=== PATIENT | female | born 1990 | race African-American/Black ===

== ENCOUNTER 2017-04-05 11:42 | Emergency (ER) | payer OTHER ==
[~2017-04-05] VITALS: Ht 170.2 cm; Wt 54.4 kg
[~2017-04-05 11:42] MED LIST: FLAGYL 250 MG250 MG PO; IBUPROFEN 600600 M1 PO; KEFLEX500 MG PO; LANSINOH 60 GM60 GM TOP; NOHOMEMEDICATIONS; NORCO 5-325 TA1 EACH PO; PHENERGAN 25 MG25 M1 PO; PHENERGAN25 M2 RC; PRENATAL PO; ZOFRAN 4 MG ORAL4 M1 DIS
[2017-04-05] MEDS ORDERED: NAPROSYN500 MG PO (14:20)
[2017-04-05] MEDS ORDERED: HYDROCODONE-AP1 EAC6 PO (14:20)
[2017-04-05] MEDS ORDERED: PHENERGAN 25 MG25 M1 PO (14:20)
[2017-04-05] MEDS ORDERED: NORFLEX100 MG PO (14:20)
== END 2017-04-05 14:56 | disposition home or self-care (01) ==
LOC: ER 11:42
DX: S16.1XXA Strain of muscle, fascia and tendon at neck level, initial encounter (principal); S80.00XA Contusion of unspecified knee, initial encounter; S29.012A Strain of muscle and tendon of back wall of thorax, initial encounter; V48.0XXA Car driver injured in noncollision transport accident in nontraffic accident, initial encounter; Y93.89 Activity, other specified; Y92.89 Other specified places as the place of occurrence of the external cause; Y99.8 Other external cause status

== ENCOUNTER 2018-12-29 08:31 | Emergency (ER) | payer OTHER ==
[~2018-12-29] VITALS: Ht 170.2 cm; Wt 63.5 kg
[~2018-12-29 08:31] MED LIST changes: +HYDROCODONE-AP1 EAC6 PO; +NAPROSYN500 MG PO; +NORFLEX100 MG PO
[2018-12-29 09:31] LABS: URINE BILIRUBIN NEGATIVE (Negative); URINE BLOOD TRACE (Negative); URINE CLARITY CLEAR; URINE COLOR YELLOW; URINE GLUCOSE-RANDOM* NEGATIVE (Negative); URINE KETONES NEGATIVE (Negative); URINE LEUKOCYTES-REFLEX TRACE (Negative); URINE NITRITE-REFLEX NEGATIVE (Negative); URINE PROTEIN (DIPSTICK) NEGATIVE (Negative); URINE SPECIFIC GRAVITY 1.025 (1.005-1.035); URINE UROBILINOGEN 0.2 E.U./dl (0.2-1.0)
[2018-12-29 10:36] VITALS: BP 100/60
--- NOTE | 2018-12-29 12:54 | EKG ---
[address] [address] ELECTROCARDIOGRAM REPORT Name: CLIFTON FAIRBANKS Room #[id number] Admission: 12/29/18 Attend Phys: Discharge: 12/29/18 Date of : 89 Report #: [id number] THIS REPORT FOR: //name// [facility] ED Test Date: 2018-12-29 Test Time: 08:37:59 Pat Name: CLIFTON FAIRBANKS Department: Room: Gender: F [employer]: RUFINA : 1990 Requested By: Manolo Alicia Order Number: [id number] MD: Christophe Durant Measurements Intervals [place] Rate: 93 P: 63 WA: 123 QRS: 61 QRSD: 81 T: 33 QT: 337 QTc: 420 Interpretive Statements Sinus rhythm 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
== END 2018-12-29 10:37 | disposition home or self-care (01) ==
LOC: ER 08:31
PROVIDERS: Emergency Medicine
DX: M54.9 Dorsalgia, unspecified (principal); R20.0 Anesthesia of skin; Z98.890 Other specified postprocedural states

== ENCOUNTER 2019-09-25 07:06 | Emergency (ER) | payer OTHER ==
[~2019-09-25] VITALS: Ht 170.2 cm; Wt 65.8 kg
[2019-09-25 07:56] LABS: ABSOLUTE NEUTROPHILS 7.3 thou/uL (1.4-8.2); BASOPHILS 0.3 % (0.0-2.0); EOSINOPHILS 0.6 % (0.0-3.0); HEMATOCRIT 39.9 % (37.0-47.0); HEMOGLOBIN 13.5 gm/dL (12.0-15.0); LYMPHOCYTES 12.4 % (24.0-44.0); MCH 30.1 pg (26.0-34.0); MCHC 33.9 g/dL (28.0-37.0); MCV 88.9 fL (80.0-100.0); MONOCYTES 5.7 % (1.0-8.0); PLATELET COUNT 217 thou/uL (150-400); RBC 4.49 mil/uL (4.20-5.00); RDW 15.7 % (10.5-14.5)
[2019-09-25 08:08] LABS: CALCIUM 8.8 mg/dL (8.5-10.1); POTASSIUM 3.6 mmol/L (3.5-5.1)
[2019-09-25] MEDS ORDERED: CLEOCIN HCL300 MG PO (09:52)
[2019-09-25] MEDS ORDERED: NORCO 5-325 TA1 EAC1 PO (09:52)
[2019-09-25 10:03] VITALS: BP 130/89
== END 2019-09-25 10:03 | disposition home or self-care (01) ==
LOC: ER 07:06
PROVIDERS: Emergency Medicine
DX: K04.7 Periapical abscess without sinus (principal)